=== PATIENT | male | born 1940 | race Caucasian/White ===

== ENCOUNTER 2022-04-03 10:19 | Inpatient (IN) ==
[2022-04-03 11:21] LABS: Basophils % 0.5 %; Eosinophils # 0.6 K/mcL (0.0-0.6); Eosinophils % 7.7 %; Hematocrit 28.7 % (37.5-50.1); Hemoglobin 9.2 g/dL (12.9-16.9); Immature Granulocytes % 0.7 % (0-4); Lymphocytes # 1.7 K/mcL (0.6-4.6); Lymphocytes % 20.7 %; Mean Corpuscular HGB Conc 32.1 g/dL (31.6-35.5); Mean Corpuscular Hemoglobin 30.7 pg (28.0-33.3); Mean Corpuscular Volume 95.7 fL (83.0-100.0); Mean Platelet Volume 9.1 fL (9.4-12.4); Monocytes # 0.6 K/mcL (0.0-1.3); Neutrophils # 5.1 K/mcL (1.6-8.9); Platelet Count 246 K/mcL (140-400); Red Cell Distribution Width 17.8 % (11.5-14.5); Segmented Neutrophils % 63.4 %
[2022-04-03 11:28] LABS: INR 4.1
[2022-04-03 11:32] LABS: Activated Partial Thrombo Time 43.1 Seconds (26.0-36.0)
[2022-04-03 11:36] LABS: Prothrombin Time 45.7 Seconds (9.4-12.1)
[2022-04-03] MEDS ORDERED: Iopamidol - 370 500 ML MLS IVP ONE (11:37)
[2022-04-03 11:40] LABS: Calcium 8.3 mg/dL (8.6-10.3); Potassium 4.1 mEq/L (3.5-5.1)
[2022-04-03 12:03] LABS: Albumin 3.3 g/dL (3.5-5.7); Albumin/Globulin Ratio 1.4 (1.1-2.2); Bilirubin,Direct 0.1 mg/dL (0.0-0.2); Bilirubin,Indirect 0.2 mg/dL (0.0-1.0); Bilirubin,Total 0.3 mg/dL (0.3-1.0); Globulin 2.3 g/dL (2.4-3.5); Total Protein 5.6 g/dL (6.4-8.9)
[2022-04-03] MEDS ORDERED: Naloxone 0.4 MG/ML INJ IVP PRN (15:37)
[2022-04-04 05:09] LABS: Basophils # 0.1 K/mcL (0.0-0.2); Basophils % 0.7 %; Eosinophils # 0.7 K/mcL (0.0-0.6); Hematocrit 25.8 % (37.5-50.1); Hemoglobin 8.3 g/dL (12.9-16.9); Immature Granulocytes % 0.5 % (0-4); Lymphocytes # 2.6 K/mcL (0.6-4.6); Lymphocytes % 27.7 %; Mean Corpuscular HGB Conc 32.2 g/dL (31.6-35.5); Mean Corpuscular Hemoglobin 30.5 pg (28.0-33.3); Mean Corpuscular Volume 94.9 fL (83.0-100.0); Mean Platelet Volume 9.4 fL (9.4-12.4); Monocytes # 0.7 K/mcL (0.0-1.3); Monocytes % 7.3 %; Neutrophils # 5.1 K/mcL (1.6-8.9); Platelet Count 226 K/mcL (140-400); Red Blood Count 2.72 M/mcL (4.19-5.50); Segmented Neutrophils % 55.8 %; White Blood Count 9.2 K/mcL (4.3-11.1)
[2022-04-04 05:28] LABS: Calcium 8.1 mg/dL (8.6-10.3); Potassium 3.8 mEq/L (3.5-5.1)
[2022-04-04] MEDS: Loratadine 10 MG TABLET PO SCH (08:47)
[2022-04-04] MEDS: Aspirin Enteric Coated 81 MG Tablet PO SCH (08:47)
[2022-04-04] MEDS: Furosemide 40 MG TABLET PO SCH (08:47)
[2022-04-04 10:19] LABS: INR 2.9
[2022-04-04] MEDS: Pantoprazole 40 MG VIAL IVP SCH (11:20)
[2022-04-04] MEDS: Nystatin Cream 15 GM TUBE TP SCH (11:21)
[2022-04-04 17:34] LABS: Hemoglobin 8.5 g/dL (12.9-16.9)
[2022-04-05 04:32] LABS: Basophils % 0.4 %; Eosinophils # 0.7 K/mcL (0.0-0.6); Hematocrit 25.4 % (37.5-50.1); Hemoglobin 7.9 g/dL (12.9-16.9); Immature Granulocytes % 0.6 % (0-4); Lymphocytes # 2.4 K/mcL (0.6-4.6); Lymphocytes % 24.7 %; Mean Corpuscular HGB Conc 31.1 g/dL (31.6-35.5); Mean Corpuscular Hemoglobin 30.3 pg (28.0-33.3); Mean Corpuscular Volume 97.3 fL (83.0-100.0); Mean Platelet Volume 9.6 fL (9.4-12.4); Monocytes # 0.9 K/mcL (0.0-1.3); Monocytes % 9.3 %; Neutrophils # 5.6 K/mcL (1.6-8.9); Platelet Count 243 K/mcL (140-400); Red Blood Count 2.61 M/mcL (4.19-5.50); Red Cell Distribution Width 17.9 % (11.5-14.5); White Blood Count 9.7 K/mcL (4.3-11.1)
[2022-04-05 04:51] LABS: Calcium 8.1 mg/dL (8.6-10.3)
[2022-04-05] MEDS: Furosemide 40 MG TABLET PO SCH (07:30)
[2022-04-05] MEDS: Pantoprazole 40 MG VIAL IVP SCH (07:30)
[2022-04-05] MEDS: Loratadine 10 MG TABLET PO SCH (07:30)
[2022-04-05] MEDS: Aspirin Enteric Coated 81 MG Tablet PO SCH (07:30)
[2022-04-05] MEDS: Nystatin Cream 15 GM TUBE TP SCH (07:31)
[2022-04-05 08:55] LABS: INR 2.1; Prothrombin Time 22.8 Seconds (9.4-12.1)
[2022-04-05] MEDS ORDERED: SODIUM CHLORIDE/NAHCO3/KCL/PEG 4,000 ML SOLN.RECON PO ONE (17:00)
[2022-04-05 17:45] LABS: Hematocrit 26.1 % (37.5-50.1); Hemoglobin 8.2 g/dL (12.9-16.9)
[2022-04-06 04:28] LABS: Basophils % 0.5 %; Eosinophils # 0.7 K/mcL (0.0-0.6); Hematocrit 23.1 % (37.5-50.1); Hemoglobin 7.4 g/dL (12.9-16.9); Immature Granulocytes % 0.5 % (0-4); Lymphocytes # 2.5 K/mcL (0.6-4.6); Lymphocytes % 27.7 %; Mean Corpuscular Hemoglobin 30.6 pg (28.0-33.3); Mean Corpuscular Volume 95.5 fL (83.0-100.0); Mean Platelet Volume 9.2 fL (9.4-12.4); Monocytes # 0.7 K/mcL (0.0-1.3); Monocytes % 8.3 %; Neutrophils # 4.9 K/mcL (1.6-8.9); Nucleated Red Blood Cells 0.2 /100 WBC (0); Platelet Count 229 K/mcL (140-400); Red Blood Count 2.42 M/mcL (4.19-5.50); Red Cell Distribution Width 18.1 % (11.5-14.5); White Blood Count 8.8 K/mcL (4.3-11.1)
[2022-04-06 04:34] LABS: INR 1.7; Prothrombin Time 19.1 Seconds (9.4-12.1)
[2022-04-06 04:46] LABS: Potassium 4.7 mEq/L (3.5-5.1)
[2022-04-06] MEDS: Furosemide 40 MG TABLET PO SCH (08:56)
[2022-04-06] MEDS: Loratadine 10 MG TABLET PO SCH (08:56)
[2022-04-06] MEDS: Nystatin Cream 15 GM TUBE TP SCH (08:57)
[2022-04-06] MEDS: Pantoprazole 40 MG VIAL IVP SCH (08:57)
[2022-04-06] MEDS: Aspirin Enteric Coated 81 MG Tablet PO SCH (08:57)
[2022-04-06] MEDS ORDERED: Simethicone 40 MG/0.6 ML MLS IR ONE (13:15)
[2022-04-06] MEDS ORDERED: *HR* Propofol 200 MG/20 ML VIAL IVP ONE ×2 (13:18→13:26)
[2022-04-06] MEDS ORDERED: Lidocaine -MPF 2% 2 ML VIAL ONE (13:18)
[2022-04-06] MEDS ORDERED: Simethicone 40 MG/0.6 ML MLS ONE (13:18)
[2022-04-06] MEDS: 0.9 % Sodium Chloride 1,000 ML IVC SCH (14:39)
[2022-04-07 06:02] LABS: Basophils % 0.4 %; Eosinophils # 0.6 K/mcL (0.0-0.6); Eosinophils % 8.7 %; Hemoglobin 7.1 g/dL (12.9-16.9); Immature Granulocytes % 0.4 % (0-4); Lymphocytes % 27.9 %; Mean Corpuscular HGB Conc 32.3 g/dL (31.6-35.5); Mean Corpuscular Hemoglobin 31.3 pg (28.0-33.3); Mean Corpuscular Volume 96.9 fL (83.0-100.0); Mean Platelet Volume 8.8 fL (9.4-12.4); Monocytes # 0.6 K/mcL (0.0-1.3); Platelet Count 205 K/mcL (140-400); Red Blood Count 2.27 M/mcL (4.19-5.50); Red Cell Distribution Width 18.4 % (11.5-14.5); Segmented Neutrophils % 54.6 %; White Blood Count 7.3 K/mcL (4.3-11.1)
[2022-04-07 06:21] LABS: Calcium 7.8 mg/dL (8.6-10.3)
[2022-04-07] MEDS: Loratadine 10 MG TABLET PO SCH (08:31)
[2022-04-07] MEDS: Aspirin Enteric Coated 81 MG Tablet PO SCH (08:31)
[2022-04-07] MEDS: Furosemide 40 MG TABLET PO SCH (08:31)
[2022-04-07] MEDS: 0.9 % Sodium Chloride 1,000 ML IVC SCH (08:34)
[2022-04-07] MEDS: Nystatin Cream 15 GM TUBE TP SCH (08:40)
[2022-04-07] MEDS ORDERED: 0.9 % Sodium Chloride 250 ML IVC SCH (11:00)
[2022-04-07 16:38] LABS: Hematocrit 26.8 % (37.5-50.1); Hemoglobin 8.5 g/dL (12.9-16.9)
[2022-04-07] MEDS ORDERED: *HR* Rivaroxaban 10 MG TABLET PO SCH (17:00)
[2022-04-07] MEDS: Apixaban 5 MG TABLET PO SCH (21:32)
[2022-04-08] MEDS: Aspirin Enteric Coated 81 MG Tablet PO SCH (08:30)
[2022-04-08] MEDS: Apixaban 5 MG TABLET PO SCH (08:31)
[2022-04-08] MEDS: Loratadine 10 MG TABLET PO SCH (08:31)
[2022-04-08] MEDS: Furosemide 40 MG TABLET PO SCH (08:32)
[2022-04-08] MEDS: Nystatin Cream 15 GM TUBE TP SCH (08:33)
[2022-04-08 11:03] VITALS: BP 123/49; PULSE 79; TEMP 97.9
[2022-04-08 11:18] VITALS: O2SAT 99
== END 2022-04-08 15:05 | disposition home or self-care (01) | DRG 378 ==
LOC: EMEROOARM 10:19 → 3NENU 10:19 → SUATTDRO 15:21 → 3NENU 16:00
PROVIDERS: ADMIT Internal Medicine; ATTEND Internal Medicine